=== PATIENT | female | born 1975 | race Caucasian/White ===

== ENCOUNTER 2021-10-25 13:56 | Emergency (ER) | payer OTHER ==
[~2021-10-25] VITALS: Ht 162.6 cm; Wt 100.7 kg
== END 2021-10-25 17:38 | disposition home or self-care (01) ==
LOC: ER 14:05
DX: M25.562 Pain in left knee (principal); M23.92 Unspecified internal derangement of left knee; Z85.6 Personal history of leukemia
CPT/HCPCS: 99282